=== PATIENT | male | born 1935 | race African-American/Black ===

== ENCOUNTER 2017-01-24 20:06 | Observation (INO) ==
[2017-01-24] MEDS ORDERED: NITROGLYCERIN TOP ONE (20:43)
[2017-01-24] MEDS ORDERED: PEPCID LIQUID PO ONE (20:44)
[2017-01-24 20:48] LABS: MANUAL DIFF NEEDED? NO
[2017-01-24 20:49] LABS: BASO% 0.3 % (0.0-0.8); EOS# 0.13 X1000 (0.0-0.7); EOS% 1.8 % (0.0-10.0); HEMATOCRIT 37.9 % (42.0-52.0); HEMOGLOBIN 12.7 g/dL (14.0-18.0); LYMPH# 1.88 X1000 (1.2-3.4); LYMPH% 25.6 % (20.5-51.1); MCH 30.8 PG (27-31); MCHC 33.5 g/dL (33-37); MONO# 0.98 X1000 (0.11-0.59); MONO% 13.3 % (1.7-9.3); MPV 10.6 FL (7.4-10.4); PLT 242 X1000 (130-400); RBC 4.12 XMIL (4.7-6.1)
[2017-01-24 21:12] LABS: ALBUMIN 4.2 g/dL (3.5-5.0); CALCIUM 9.6 mg/dL (8.8-10.2); TOTAL BILIRUBIN 0.3 mg/dL (0.20-1.00); TOTAL PROTEIN 8.1 g/dL (6.3-8.3)
[2017-01-25] MEDS ORDERED: NITROGLYCERIN LINGUAL SPRAY SL PRN (00:24)
[2017-01-25] MEDS ORDERED: ZOFRAN IV PRN ×2 (00:24→06:51)
[2017-01-25] MEDS ORDERED: TYLENOL PO PRN ×2 (00:24→06:51)
[2017-01-25] MEDS ORDERED: NS 1,000 ML IV SCH (06:51)
[2017-01-25] MEDS ORDERED: PRILOSEC PO SCH (07:00)
[2017-01-25 07:06] VITALS: BP 149/72
[2017-01-25] MEDS ORDERED: GLUCOPHAGE PO SCH (09:00)
[2017-01-25] MEDS ORDERED: ZYLOPRIM PO SCH (09:00)
[2017-01-25] MEDS ORDERED: COZAAR PO SCH (09:00)
[2017-01-25] MEDS ORDERED: ASPIRIN EC PO SCH (09:00)
[2017-01-25] MEDS ORDERED: COREG PO SCH (09:00)
[2017-01-25] MEDS ORDERED: LIPITOR PO SCH (09:00)
== END 2017-01-25 11:30 | disposition home or self-care (01) ==
LOC: P.ED 20:06 → P.MEDSURG 20:06
PROVIDERS: ADMIT Family Medicine; ATTEND Family Medicine